=== PATIENT | female | born 1985 | race Caucasian/White ===

== ENCOUNTER → 2019-06-29 15:26 | Outpatient (CLI) | payer BC, SELFPAY ==
[2019-07-02 17:05] LABS: HPV APTIMA, High Risk Negative (Negative)
[2019-07-02 17:06] LABS: HPV Reflexed? YES, CHARGE PATIENT
== END ==
PROVIDERS: Visit Provider Obstetrics & Gynecology
DX: Z12.4 Encounter for screening for malignant neoplasm of cervix (principal)
CPT/HCPCS: 87624; 88175; G0145

== ENCOUNTER 2019-07-01 14:30 | Outpatient (RCR) | payer BC, SELFPAY ==
--- NOTE | 2019-06-15 08:58 | HP.PTEVAL_ITS ---
Patient's Visit Information SHARONA PALMER is a 34 year old F referred to Physical Therapy by Kam Ingram MD with a diagnosis of R ankle strain. Date of Evaluation: 06/15/19 Physical Therapist: Logan Azar, HALLET, OCS, CSCS - Visit Plan Frequency: 1x/Week Duration: 4-6 Weeks Plan: weekly x 2-3(minimizing PT due to copay and patient request.). next visit teach TB strength for HEP and monitor progress with inv/ev ROM and gait/steps. - Subjective Findings: Fell and strained R ankle twisting it sideways on April 25. Was just standing at the time leaning on the fridge. No history of ankle problems. Was not great for over a month...excruciating adn not healing. This last week has been better adn able to walk. Pain over this past weekend was to 3/10 when walking alot. slightly painful walking back to therapy but not bad. Sometimes wakes her up at night. Now in the past week , activities have become mmore normal but cannot run. Able to do basic ADLs over the last week, not sure why that has improved in the last week. No different treatments lately, just ice and ibuprofen originally but not much anymore.. 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 Worked 7 hours yesterday and hurt at 4/10. Pain, when present, is lateral at R ankle and last metatarsal. - Pain R ankle Pain Intensity (Out of 10): 0 Pain Intensity Range: 0, 4 - Objective Walking normal originally then slightly antalgic R after steps. Steps reciprocal without rail but avoids PF in descending. toe and heel walks OK but tender to toe walk. L ankle AROM WFL to 50 inv adn 25 eversion adn 15 DF and 55 PF. R ankle 10 inv uncomfortable, 8 eversion, 8 DF knee straight adn 15 knee bent, and 55 PF slowly with some discomfort. Strength knees adn hips 4+/5 without pain. ankle strength 4- inv adn ev R vs 4+ on L. DF 4+ B. PF 4- R and 5 on Left. Sensation WNL to gross light touch in R LE. Metatarsals moving well. Big toe ROM and strength WNL and without pain. Tender to touch in anterior talo fib ligs and anterior lateral ankle. No bruising or unusual swelling this morning. - Goals Goal 1:: Walk community without antalgia and normal steps without avoidance of PF. Goal Time Frame: 2-4 Weeks Goal 2:: Pt feel 90% back to normal and pain 1/10 at worst and rare. Goal Time Frame: 2-4 Weeks Goal 3:: <10% disability on LEFS Goal Time Frame: 2-4 Weeks Goal 4:: I approp HEP to minimize future problems Goal Time Frame: 4-6 Weeks - Rehabilitation Potential Physical Therapy Diagnosis: R ankle strain Rehabilitation Potential: Good - Anticipated Interventions Patient/Client Instruction: Educate patient on: Condition, Plan of Care For the Purpose of:: To decrease pain, To increase ROM, To improve muscle p erformance and motor function, To increase tolerance to activity/condition/position, To improve ability of physical actions for home/community/work/leisure Therapeutic Exercise to Include: Strength training, Flexibilty training, Gait and locomotor training, Passive ROM, Active ROM For the Purpose of:: To decrease pain, To decrease swelling/inflammation, To improve muscle performance and motor function, To increase tolerance to activity/condition/position, To improve gait and locomotor functions Thank you for the opportunity to evaluate your patient. For Medicare and Medicare HMO plans, please review the plan of care and approve it. It will need to be FAXED BACK to us at [phone] for Medicare purposes. For Medicare only, by signing this I certify the plan of care. Please let me know if there are questions or concerns regarding this plan of care. Physician Signature: Date:
--- NOTE | 2019-07-01 14:55 | HP.PTDCSUM ---
HP - PT D/C Summary It has been my pleasure to treat SHARONA PALMER under orders from Kam Ingram MD, for the diagnosis of R ankle strain for a total of 3 visit(s). Discharge Date: 07/01/19 Please see the following information for a summary of their discharge status. - Subjective Subjective: Feeling about the same over the last week. Not in pain unless stretching. label fuser tender to the touch. Walking feels good. Activities are pretty normal. No f/u with doctor. - Pain R ankle Pain Intensity (Out of 10): 0 - Overall Improvement % Improvement: 50 - Objective Objective/Function: Avoids forefoot WB down steps with R but does it painfree when cued. Walking is normal. AROM WFL and strength R ankle 4+/5 without pain. Overall doing well and subjectively back to normal - Goals Goal 1:: Walk community without antalgia and normal steps without avoidance of PF. Goal Progress: Goal Met Goal 2:: Pt feel 90% back to normal and pain 1/10 at worst and rare. Goal Progress: Progressing Goal 3:: <10% disability on LEFS Goal Progress: Progressing Goal 4:: I approp HEP to minimize future problems Goal Progress: Goal Met - Plan Plan: d/c - D/C Information Discharge Comments: Doing well and ishmael lcotninue via HEP and let doctor know if pain returns. If there are questions or concerns regarding this patient's physical therapy, please feel free to call me at [phone]. Thank you for the referral of this patient. Sincerely, Logan Azar, DPT, OCS, CSCS
== END 2019-07-01 19:00 | disposition home or self-care (01) ==
LOC: PT 14:30
PROVIDERS: Family Provider Family Medicine; PCP Family Medicine; Visit Provider Family Medicine
DX: S96.911D Strain of unspecified muscle and tendon at ankle and foot level, right foot, subsequent encounter (principal)
CPT/HCPCS: 97110; 97161; 97530

== ENCOUNTER 2020-12-26 16:00 | Outpatient (RCR) | payer OTHER, SELFPAY ==
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
--- NOTE | 2020-10-20 10:31 | HP.OTREVAL ---
PATRICIA GARCÍA, It has been my pleasure to treat SHARONA PALMER over the last 13 visits for right TFCC tear. Please see the progress note below for an update on the occupational therapy plan of care! Subjective: sees on November 01 for follow up-. pt demo rolling her wrist increases her pain- and with waving-. feeling of tightness and rolling the wrist causes a pop Objective/Function: wrist 75/55. RD 15 UD 15. pt states with rolling wrist she gets a pop sensation and pain. Therapist advised pt strongly to not roll wist to decrease tightness therapist advised to perform wrist flexion and extension and then UD and RD only (this does not cause pain) pt demo understanding but continued while in clinic- pt said she would work on this-. pt has made good gains with ROM and strength but still feels she is limited with her daily tasks- pt states pain at rest is 2/10 and with use 4/10. therapist advised pt to limit end range of motion stretching that this could compromise the repair and increase pain as she has good ROM with minimal pain. advised pt that is can take up to a year to recover from this sx. more time may decrease her feeling of tightness as scar tissue matures and softens. pt demo understanding. will continue to work with pt next three weeks to increase pts strength without increasing pts pain and return pt to use of right UE with ADLs and IADLs. Therapist advised if she is performing a tasks to make sure pain in no greater than 3/10. Plan Frequency: 2-3x /Week Duration: 6 Weeks Plan: cont POC with PREs without pain. Goals - Goals Patient Goals: Regain Mobility, Regain Strength, Use Hand/Wrist/Arm Normally Again Goal:100% adherence to protocol: Yes Goal:Daily scar massage when approriate: Yes Goal:ROM equal to unaffected hand: Yes Goal:Sanforizing Machine Operator/Pinch strength at least 75% of unaffected hand: Yes Goal:No pain with affected hand use: Yes Goal:Full use of affected hand in daily activities including: Yes Anticipated Interventions Anticipated Interventions: A/AAROM/PROM, Strengthening, Scar Care, Triggerpoint Release, Modalities, Orthoses, Joint Protection/Energy Conservation, Ergonomic Education Please do not hesitate to contact me at [phone] by phone or if you have questions or concerns regarding this new plan of care! Sincerely, Mercedes Walker, OTR/L, CHT
--- NOTE | 2020-10-28 09:10 | HP.OTREVAL ---
PATRICIA GARCÍA, It has been my pleasure to treat SHARONA PALMER over the last 15 visits for right TFCC tear. Please see the progress note below for an update on the occupational therapy plan of care! Subjective: pt arrives states she still notices some popping here an there maybe once or twice every few days- no consistent clicking- pt states she would like to return to yoga without pain, and would like to return to her woodworking tasks she has not been able to do these things since her injury. Objective/Function: pt demo a right reimbursement coordinator strength at 53# without pain this is a increase from 20#. right wrist ROM 70/60. right forearm supination 75. right lateral pinch 14#. right tripod pinch 18#. pt demo a reduction in pain with restrictive reimbursement coordinator strength. Pt reports she has stopped rolling her wrist. Therapist advised to avoid pain with stretching - pt demo understanding-. therapist has ed. pt to avoid supination reimbursement coordinator ie carry shopping bags ect. pt demo understanding- pt making gains just want to return to doing things she did prior to her injury 3 year ago ie yoga and home repairs/ wood working Plan Frequency: 1-2x /Week Duration: 3 Weeks Plan: cont with strengthening Goals - Goals Patient Goals: Regain Mobility, Regain Strength, Use Hand/Wrist/Arm Normally Again Goal:100% adherence to protocol: Yes Goal:Daily scar massage when approriate: Yes Goal:ROM equal to unaffected hand: Yes Goal:Elementary School Librarian/Pinch strength at least 75% of unaffected hand: Yes Goal:No pain with affected hand use: Yes Goal:Full use of affected hand in daily activities including: Yes Anticipated Interventions Anticipated Interventions: A/AAROM/PROM, Strengthening, Scar Care, Triggerpoint Release, Modalities, Orthoses, Joint Protection/Energy Conservation, Ergonomic Education Please do not hesitate to contact me at [phone] by phone or if you have questions or concerns regarding this new plan of care! Sincerely, Mercedes Walker, OTR/L, CHT
== END 2020-12-26 19:00 | disposition home or self-care (01) ==
LOC: OT 16:00
PROVIDERS: PCP Family Medicine
DX: S69.81XD Other specified injuries of right wrist, hand and finger(s), subsequent encounter (principal); Z98.890 Other specified postprocedural states
CPT/HCPCS: 97110; 97140; 97166; 97530

== ENCOUNTER 2021-08-26 09:32 | Outpatient (CLI) | payer OTHER, SELFPAY ==
[2021-08-26 10:44] LABS: ALB/GLOB Ratio 1.3 RATIO (0.9-2.4); AST(SGOT) 14 U/L (15-37); Alanine Aminotransfer ALT/SGPT 18 U/L (13-56); Albumin, Serum 4.4 g/dL (3.2-5.0); Alkaline Phosphatase 74 U/L (45-117); Anion Gap 3 (5-15); BUN 13 mg/dL (7-18); BUN/Creat Ratio 14.9 RATIO (10-20); Calcium,Total 9.4 mg/dL (8.5-10.1); Chloride 108 mmol/L (98-107); Cholesterol 176 mg/dL (200); Creatinine, Serum 0.88 mg/dL (0.55-1.02); EST Glomerular Filtration Rate 78 mL/min (>60); Est Glom Filt Rate - Afr Amer 95 mL/min (>60); Globulin 3.4 g/dL (2.2-4.2); Glucose 92 mg/dL (74-106); High Density Lipoprotein 58 mg/dL; Potassium 4.2 mmol/L (3.5-5.1); Protein, Total 7.8 g/dL (6.4-8.2); Sodium Level 135 mmol/L (136-145); Triglycerides 55 mg/dL; Very Low Density Lipoprotein 11 mg/dL (5-40)
[2021-08-27 10:07] LABS: HEPATITIS B SURFACE AG Negative (Negative); Hepatitis A IgM Antibody Negative (Negative); Hepatitis B Core AB IgM Negative (Negative)
[2021-08-27 16:14] LABS: Hepatitis A AB, Total Negative (Negative)
[2021-08-28 09:25] LABS: Hepatitis B Surface Antibody Non-Reactive; Vitamin D,25 Hydroxy 35.7 ng/mL
[2021-08-28 14:04] LABS: Hep C Antibodies >11.0 s/co ratio (0.0-0.9)
== END 2021-08-26 23:59 | disposition home or self-care (01) ==
PROVIDERS: PCP Family Medicine; Referring Provider Family Medicine; Visit Provider Family Medicine
DX: Z00.00 Encounter for general adult medical examination without abnormal findings (principal); F19.11 Other psychoactive substance abuse, in remission
CPT/HCPCS: 36415; 80053; 80061; 80074; 82306; 86706; 86708

== ENCOUNTER 2021-08-30 15:25 | Outpatient (CLI) | payer OTHER, SELFPAY ==
[2021-09-01 19:07] LABS: HCV Quant. RNA PCR HCV Not Detected IU/mL (.)
== END 2021-08-30 23:59 | disposition home or self-care (01) ==
LOC: MFPLAB 15:28
PROVIDERS: PCP Family Medicine; Referring Provider Family Medicine; Visit Provider Family Medicine
DX: B19.20 Unspecified viral hepatitis C without hepatic coma (principal)
CPT/HCPCS: 36415; 87522

== ENCOUNTER → 2021-11-03 | Outpatient (CLI) | payer OTHER, SELFPAY ==
[2021-11-03 16:21] LABS: Absolute Lymphocyte Count 2.73 X10^3/uL (0.83-4.51); Absolute Neutrophil Count 6.2 X10^3/uL (2.0-7.7); Basophil# 0.05 X10^3/uL; Basophil% 0.5 % (0-1); Eosinophil# 0.16 X10^3/uL; Eosinophils% 1.6 % (0-5); Hematocrit 38.4 % (37-47); Hemoglobin 13.5 g/dL (12.0-15.0); Lymphocyte # 2.73 X10^3/ul (0.83-4.51); Mean Corp Hgb Conc 35.2 g/dL (32-36); Mean Corpuscular Hgb 33.2 pg (27.0-32.0); Mean Corpuscular Volume 94.3 fL (81-99); Mean Platelet Vol. 10.2 fl (6.2-12.0); Monocyte# 0.63 X10^3/uL; Monocyte% 6.5 % (0-10); NRBC Flagged by Analyzer 0 % (0-5); Neutrophil # 6.16 X10^3/uL (2.7-7.7); Neutrophil % 63.2 % (47-70); Platelet Count 184 K/mm3 (150-450); RBC Distribution Width CV 11.7 % (11.6-14.6); RBC Distribution Width SD 40.3 fl (35.1-43.9); Red Blood Count 4.07 M/mm3 (4.2-5.4); White Blood Count 9.8 K/mm3 (4.4-11.0)
[2021-11-03 16:30] LABS: International Normalized Ratio 0.9; Prothrombin Time (Protime)PT. 12.2 SECONDS (11.7-14.9)
[2021-11-03 16:31] LABS: Erythrocyte Sedimentation Rate 6 mm/hr (0-30)
[2021-11-03 17:35] LABS: Hemoglobin A1c 5.2 % (3.8-5.6)
[2021-11-03 17:37] LABS: ALB/GLOB Ratio 1.2 RATIO (0.9-2.4); AST(SGOT) 13 U/L (15-37); Alanine Aminotransfer ALT/SGPT 23 U/L (13-56); Albumin, Serum 3.8 g/dL (3.2-5.0); Alkaline Phosphatase 80 U/L (45-117); Anion Gap 5 (5-15); BUN 13 mg/dL (7-18); CRP < 2.90 mg/L (0.0-3.0); Chloride 107 mmol/L (98-107); Creatinine, Serum 0.87 mg/dL (0.55-1.02); EST Glomerular Filtration Rate 79 mL/min (>60); Est Glom Filt Rate - Afr Amer 96 mL/min (>60); Ferritin 47 ng/mL (8-252); Globulin 3.3 g/dL (2.2-4.2); Glucose 86 mg/dL (74-106); LDH 162 U/L (84-246); Protein, Total 7.1 g/dL (6.4-8.2); Sodium Level 138 mmol/L (136-145)
[2021-11-04 10:10] LABS: HIV - WCH Non-Reactive (Nonreactive)
[2021-11-04 10:19] LABS: Hepatitis C Antibody REACTIVE (Nonreactive)
[2021-11-07 15:08] LABS: Anti-Centromere B Ab <0.2 AI (0.0-0.9); Anti-Chromatin <0.2 AI (0.0-0.9); Anti-Jo <0.2 AI (0.0-0.9); Anti-Scleroderma-70 AB <0.2 AI (0.0-0.9); RNP Ab 0.2 AI (0.0-0.9); SJOGREN'S Anti-SS-A test < 0.2 AI (0.0-0.9); SJOGREN'S Anti-SS-B test < 0.2 AI (0.0-0.9); Smith Ab <0.2 AI (0.0-0.9)
[2021-11-08 11:03] LABS: Anti-Mitochondrial AB <20.0 Units (0.0-20.0); Anti-dsDNA Ab <1 IU/mL (0-9)
== END | disposition home or self-care (01) ==
LOC: LAB 15:50
PROVIDERS: PCP Family Medicine; Referring Provider Nurse Practitioner Adult Health; Visit Provider Nurse Practitioner Adult Health
DX: R76.8 Other specified abnormal immunological findings in serum (principal)
CPT/HCPCS: 36415; 80053; 80074; 82105; 82140; 82164; 82390; 82525; 82728; 83010; 83036; 83516; 83615; 85025; 85610; 85652; 86140; 86225; 86235; 86256; 86703; 86803; 87521; 87522; 87902

== ENCOUNTER → 2021-12-15 | Outpatient (CLI) | payer OTHER, SELFPAY ==
--- NOTE | 2021-12-15 07:31 | US_ITS ---
STUDY: ABDOMINAL ULTRASOUND - RIGHT UPPER QUADRANT REASON FOR VISIT: Female, 36 years old . Hepatitis C. TECHNIQUE: Ultrasound evaluation of the right upper quadrant was performed with real-time and static ghosh-scale imaging. TECHNICAL QUALITY: Adequate. COMPARISON: None. FINDINGS: Liver: The liver measures 15.9 cm. There is normal echogenicity of the liver. The bile ducts are within normal limits. There is hepatic color flow. The direction of portal flow is hepatopetal. There is no demonstrated mass lesion. Gallbladder: Normal distended gallbladder. The gallbladder wall measures 2 mm. There is a negative sonographic Garduno''s sign. There is no pericholecystic fluid. There are no gallstones. Common Bile Duct (C.B.D.): The common bile duct is mildly dilated and measures 10 mm. Pancreas: Normal size of the head, body and tail of the pancreas. There is normal echogenicity of the pancreas. There is no demonstrated pancreatic mass or cyst. Right Kidney: Normal size of the right kidney. The right kidney measures 12.1 cm x 4.8 cm x 3.9 cm. Normal renal cortex. The right cortex measures 1.4 cm. There is no demonstrated renal mass or cyst. There is no right hydronephrosis. US/Abdomen Limited IMPRESSION: Mildly dilated common bile duct. Electronically Signed: Branden Flores MD at 8:42 EDT ,
--- NOTE | 2021-12-15 07:31 | US_ITS ---
STUDY: ABDOMINAL ULTRASOUND - ELASTOGRAPHY REASON FOR VISIT: Female, 36 years old. History of hepatitis C. TECHNIQUE: Liver stiffness measurements were obtained on a [employer] RS 85 ultrasound machine using a CA 1-7 probe following the SRU guidelines. 3 measurements were obtained using a 2-D-SWE method. The IQR/M was 11% suggesting a quality data set. TECHNICAL QUALITY: Adequate. COMPARISON: Comparison is made with prior ultrasound done earlier today. FINDINGS: Liver: There is no demonstrated mass lesion. Median liver stiffness measured 6 kPa. US/Elastography Parenchyma/Organ IMPRESSION: Liver stiffness measures 6 kPa compatible with F2-F3 (Mild to moderate liver fibrosis) Metavir score. Electronically Signed: Branden Flores MD at 8:55 EDT ,
== END | disposition home or self-care (01) ==
LOC: US 07:31
PROVIDERS: PCP Family Medicine; Referring Provider Nurse Practitioner Adult Health; Visit Provider Nurse Practitioner Adult Health
DX: R76.8 Other specified abnormal immunological findings in serum (principal); B19.20 Unspecified viral hepatitis C without hepatic coma
CPT/HCPCS: 76705; 76981

== ENCOUNTER → 2022-02-16 | Outpatient (CLI) | payer OTHER, SELFPAY ==
--- NOTE | 2022-02-16 16:27 | MRI_ITS ---
INDICATION: dilated CBD EXAMINATION: MRI - MR MRCP and Abdomen W/O Contrast TECHNIQUE: Multiplanar and multisequence MR images of the abdomen were obtained with MRCP sequence. Three-dimensional post-processing reconstructions were performed. IV Contrast Dosage and Agent: None. COMPARISON: Ultrasound abdomen 12/15/2021. FINDINGS: Evaluation limited due to motion. LIVER: No mass. Normal morphology. GALLBLADDER AND BILIARY TREE: No gallstones. No gallbladder distension or wall edema. The proximal duodenum is dilated measuring 9 mm without discrete filling defect in the distal CBD. Nvet-bf-vduqjfsa intrahepatic biliary ductal dilatation. PANCREAS: No mass. No pancreatic duct dilation. SPLEEN: Non-enlarged. ADRENAL GLANDS: No nodules. KIDNEYS: Normal renal size and position. No hydronephrosis. No mass. BOWEL: Mild increased stool in the colon. No bowel dilatation. LYMPH NODES: No enlarged periportal or retroperitoneal lymph nodes. PERITONEUM: No ascites or fluid collection. VESSELS: Aorta is non-dilated. LOWER CHEST: No pleural effusion. MRI/MRCP Abdomen without Contrast IMPRESSION: 1. Evaluation limited due to motion. 2. Dilated proximal CBD measuring 9 mm without discrete filling defect to suggest choledocholithiasis. 3. Bzvc-mt-ugyhnuse intrahepatic biliary ductal dilatation. Electronically Signed: Bg Edwards MD at 6:23 EDT ,
== END | disposition home or self-care (01) ==
LOC: MRI 16:17
PROVIDERS: PCP Family Medicine; Visit Provider Nurse Practitioner Adult Health
DX: K83.8 Other specified diseases of biliary tract (principal)
CPT/HCPCS: 74181

== ENCOUNTER → 2022-05-24 | Outpatient (CLI) | payer OTHER, SELFPAY ==
[2022-05-24 17:10] LABS: Absolute Lymphocyte Count 2.88 X10^3/uL (0.83-4.51); Absolute Neutrophil Count 5.6 X10^3/uL (2.0-7.7); Basophil# 0.02 X10^3/uL; Basophil% 0.2 % (0-1); Eosinophil# 0.14 X10^3/uL; Eosinophils% 1.5 % (0-5); Hematocrit 42.1 % (37-47); Hemoglobin 14.9 g/dL (12.0-15.0); Lymphocyte # 2.88 X10^3/ul (0.83-4.51); Lymphocyte % 31.4 % (19-41); Mean Corp Hgb Conc 35.4 g/dL (32-36); Mean Corpuscular Hgb 33.1 pg (27.0-32.0); Mean Corpuscular Volume 93.6 fL (81-99); Mean Platelet Vol. 10.5 fl (6.2-12.0); Monocyte# 0.49 X10^3/uL; Monocyte% 5.3 % (0-10); NRBC Flagged by Analyzer 0 % (0-5); Neutrophil # 5.62 X10^3/uL (2.7-7.7); Neutrophil % 61.5 % (47-70); Platelet Count 187 K/mm3 (150-450); RBC Distribution Width CV 11.9 % (11.6-14.6); RBC Distribution Width SD 40.8 fl (35.1-43.9); White Blood Count 9.2 K/mm3 (4.4-11.0)
[2022-05-24 17:24] LABS: International Normalized Ratio 1.1; Prothrombin Time (Protime)PT. 13.4 SECONDS (11.7-14.9)
[2022-05-24 18:13] LABS: ALB/GLOB Ratio 1.2 RATIO (0.9-2.4); AST(SGOT) 12 U/L (15-37); Alanine Aminotransfer ALT/SGPT 19 U/L (13-56); Albumin, Serum 4.1 g/dL (3.2-5.0); Alkaline Phosphatase 80 U/L (45-117); Anion Gap 4 (5-15); BUN 12 mg/dL (7-18); Calcium,Total 9.1 mg/dL (8.5-10.1); Chloride 106 mmol/L (98-107); Creatinine, Serum 0.75 mg/dL (0.55-1.02); EST Glomerular Filtration Rate 93 mL/min (>60); Est Glom Filt Rate - Afr Amer 113 mL/min (>60); Globulin 3.4 g/dL (2.2-4.2); Glucose 84 mg/dL (74-106); Potassium 3.6 mmol/L (3.5-5.1); Protein, Total 7.5 g/dL (6.4-8.2); Sodium Level 136 mmol/L (136-145)
[2022-05-26 18:07] LABS: HCV Quant. RNA PCR HCV Not Detected IU/mL (.)
[2022-05-26 21:02] LABS: AFP, Tumor Marker < 1.8 ng/mL (0.0-6.4)
== END | disposition home or self-care (01) ==
LOC: LAB 16:05
PROVIDERS: PCP Family Medicine; Visit Provider Nurse Practitioner Adult Health
DX: R76.8 Other specified abnormal immunological findings in serum (principal); K76.0 Fatty (change of) liver, not elsewhere classified; B19.20 Unspecified viral hepatitis C without hepatic coma
CPT/HCPCS: 36415; 80053; 82105; 82140; 85025; 85610; 87522

== ENCOUNTER → 2022-06-20 | Outpatient (CLI) | payer OTHER, SELFPAY ==
[2022-06-20 16:09] LABS: Absolute Lymphocyte Count 2.72 X10^3/uL (0.83-4.51); Absolute Neutrophil Count 5.1 X10^3/uL (2.0-7.7); Basophil# 0.02 X10^3/uL; Basophil% 0.2 % (0-1); Eosinophil# 0.12 X10^3/uL; Eosinophils% 1.4 % (0-5); Hematocrit 40.4 % (37-47); Hemoglobin 13.8 g/dL (12.0-15.0); Lymphocyte # 2.72 X10^3/ul (0.83-4.51); Mean Corp Hgb Conc 34.2 g/dL (32-36); Mean Corpuscular Volume 93.7 fL (81-99); Mean Platelet Vol. 10.4 fl (6.2-12.0); Monocyte% 5.9 % (0-10); NRBC Flagged by Analyzer 0 % (0-5); Neutrophil # 5.13 X10^3/uL (2.7-7.7); Neutrophil % 60.4 % (47-70); Platelet Count 166 K/mm3 (150-450); RBC Distribution Width CV 11.7 % (11.6-14.6); RBC Distribution Width SD 40.7 fl (35.1-43.9); Red Blood Count 4.31 M/mm3 (4.2-5.4); White Blood Count 8.5 K/mm3 (4.4-11.0)
[2022-06-20 20:42] LABS: Estradiol 140.1 pg/mL; Follicle Stimulating Hormone 3.9 mIU/mL; Luteinizing Hormone 5.7 mIU/mL; T4 Free Direct 1.11 ng/dL (0.76-1.46); Thyroid Stim Hormone (TSH) 1.45 uIU/mL (0.358-3.74)
[2022-06-25 22:07] LABS: HPV APTIMA, High Risk Negative (Negative)
[2022-06-28 11:09] LABS: Testosterone, Total 19 ng/dL (8-60)
[2022-06-29 20:32] LABS: Testosterone, % Free 1.05 % (0.50-2.80)
== END | disposition home or self-care (01) ==
LOC: LABSPEC 15:17
PROVIDERS: PCP Family Medicine; Visit Provider Obstetrics & Gynecology
DX: Z12.4 Encounter for screening for malignant neoplasm of cervix (principal); R10.2 Pelvic and perineal pain
CPT/HCPCS: 36415; 82670; 83001; 83002; 84402; 84403; 84439; 84443; 85025; 87624; 88175; G0145

== ENCOUNTER 2022-07-11 15:00 | Outpatient (RCR) | payer OTHER, SELFPAY ==
--- NOTE | 2022-06-21 11:57 | HP.PTEVAL_ITS ---
Patient's Visit Information SHARONA PALMER is a 37 year old F referred to Physical Therapy by Dr. Kam Hunt MD with a diagnosis of L knee pain. Date of Evaluation: 06/19/22 Physical Therapist: David Hurtado, PT, ATC - Visit Plan Frequency: 1x/Week Duration: 1 Week Plan: Issue and instruct pt on HEP consisting of core strengthening and L LE strengthening (VMO and hip abd) - Subjective L knee has been sore for approximately 3 weeks. Pt reports her pain had an insidious onset in nature. Pt reports she does go on walks and perform squats on occasion, but has had no pain with that activity. Pt reports she has been using advil and ice and notes most of her pain is gone now. Pt works remotely from home for [employer]. Pt reports sqatting and going up/down stairs results in increased pain. Pt reports the pain does not effect her sleep at this time, but pt notes when the pain is bad, it does effect her sleep. No tingling or numbness at this time. Pt reports she did have xrays which revealed OA of her L knee. 0/10 pain while sitting here at rest, 7/10 pain at worst. - Pain L knee Pain Intensity (Out of 10): 0 Pain Intensity Range: 7 - Objective Neuro: B LE sensation is WNL to light touch. B patrellar reflex= 2/3. Palpation: Crepitus with AROM of L knee. Tenderness along lateral border of L patella. No obvious deformity. ROM: R knee 0-150, L knee 0-150 degrees. MMT: R knee is 5/5 throughout while L knee flex= 5/5, ext= 4/5 and painful. Special tests: Pos McConnels sign, pos 90/90 - Balance/Special Test Scores Lower Extremity Functional Score: 69 - Goals Goal 1:: Pt will be I with HEP in 1-2 visits Goal Time Frame: 1 Week - Rehabilitation Potential Physical Therapy Diagnosis: Pt has L knee pain and weakness secondary to L knee patellofemoral syndrome Rehabilitation Potential: Good - Anticipated Interventions Patient/Client Instruction: Educate patient on: Condition, Plan of Care For the Purpose of:: To improve self management Therapeutic Exercise to Include: Strength training, Endurance training, Dynamic Lumbar Stabilization For the Purpose of:: To decrease pain, To improve muscle performance and motor function Cryotherapy (ice pack, ice massage): Yes For the Purpose of:: To decrease pain Thank you for the opportunity to evaluate your patient. For Medicare and Medicare HMO plans, please review the plan of care and approve it. It will need to be FAXED BACK to us at [phone] for Medicare purposes. For Medicare only, by signing this I certify the plan of care. Please let me know if there are questions or concerns regarding this plan of care. Physician Signature: Date:
--- NOTE | 2022-11-29 12:45 | HP.PTDCNRP_ITS ---
SHARONA PALMER was seen in my office for initial evaluation on 06/19/22. The following Plan of Care was established for this patient: Initial Frequency: 1x/Week Initial Duration: 1 Week Patient/Client Instruction: Educate patient on: Condition, Plan of Care For the Purpose of:: To improve self management Therapeutic Exercise to Include: Strength training, Endurance training, Dynamic Lumbar Stabilization For the Purpose of:: To decrease pain, To improve muscle performance and motor function Cryotherapy (ice pack, ice massage): Yes For the Purpose of:: To decrease pain This patient was last seen in our office . Pertinent comments regarding their Physical therapy will appear below: Pt was treated for 2 PT visits for L knee pain through the date of 07/11/22. Pt h as not returned through todays date and is discontinued at this time. At this point I will be discontinuing this patient from physical therapy. I would be happy to see this patient again in the future if found appropriate by the physician. Thank you! David Hurtado, PT, ATC Balance/Gait/Functional tests - Balance/Special Test Scores Lower Extremity Functional Score: 69
== END 2022-07-11 19:00 | disposition home or self-care (01) ==
LOC: PT 15:00
PROVIDERS: PCP Family Medicine; Visit Provider Family Medicine
DX: M25.562 Pain in left knee (principal)
CPT/HCPCS: 97110; 97161

== ENCOUNTER → 2022-11-14 | Outpatient (CLI) | payer OTHER, SELFPAY ==
--- NOTE | 2022-11-14 08:52 | BI_ITS ---
MAMMOGRAPHY - BILATERAL DIAGNOSTIC REASON FOR EXAM: Female, 37 years old. Pain at the 12:00 position of the left breast. PERTINENT HISTORY: Aunt with breast cancer. TECHNIQUE: Digital bilateral breast jesse (3D mammographic acquisition) in the CC and MLO projections. 2-D mediolateral oblique (MLO) and craniocaudad (CC) views of both breasts were obtained. CAD: Full Field Digital Mammography with Computer Added Detection was performed. COMPARISON: None. Baseline examination. FINDINGS: Breast Composition: The breasts are extremely dense, which lowers the sensitivity of mammography. There are no dominant masses or suspicious calcifications. No other significant abnormalities are identified. BI/DIAG MAMM W/CAD, BILAT IMPRESSION: Negative diagnostic mammogram. With the patient''s history of pain at the 6:00 position of the left breast, correlation with ultrasound is recommended. ASSESSMENT CATEGORY: BIRADS Category 0: Incomplete. Need additional imaging evaluation. A letter regarding these results will be sent to the patient by the facility within 30 days. Approximately 10% of breast cancers are not detected by mammography. A normal mammogram should not delay biopsy of a clinically suspicious abnormality. Electronically Signed: Branden Flores MD at 9:38 EDT ,
--- NOTE | 2022-11-14 09:34 | US_ITS ---
STUDY: ULTRASOUND BREAST - LEFT REASON FOR EXAM: Female, 37 years old. Pain in the left breast. TECHNIQUE: Axial and longitudinal images of the LEFT breast were performed with a high resolution ultrasound transducer. # OF IMAGES: 19 COMPARISON: Comparison is made with prior mammogram done earlier in the day. FINDINGS: LEFT Breast: Ultrasound of the left breast was obtained. Dense fibroglandular tissue. No sonographic abnormality is seen. US/Breast Limited Unilateral IMPRESSION: Unremarkable targeted ultrasound of the left breast. ASSESSMENT CATEGORY: BIRADS Category 1: Negative. A letter regarding these results will be sent to the patient by the facility within 30 days. Electronically Signed: Branden Flores MD at 10:00 EDT ,
== END | disposition home or self-care (01) ==
PROVIDERS: PCP Family Medicine; Referring Provider Family Medicine; Visit Provider Family Medicine
DX: N64.4 Mastodynia (principal); Z80.3 Family history of malignant neoplasm of breast
CPT/HCPCS: 76642; 77062; 77066; G0279

== ENCOUNTER → 2022-11-22 | Outpatient (CLI) | payer OTHER, SELFPAY ==
[2022-11-22 16:21] LABS: Absolute Lymphocyte Count 2.83 X10^3/uL (0.83-4.51); Absolute Neutrophil Count 2.8 X10^3/uL (2.0-7.7); Basophil# 0.03 X10^3/uL; Basophil% 0.5 % (0-1); Eosinophil# 0.24 X10^3/uL; Eosinophils% 3.7 % (0-5); Hematocrit 38.9 % (37-47); Hemoglobin 12.9 g/dL (12.0-15.0); Lymphocyte # 2.83 X10^3/ul (0.83-4.51); Lymphocyte % 43.8 % (19-41); Mean Corp Hgb Conc 33.2 g/dL (32-36); Mean Corpuscular Hgb 32.2 pg (27.0-32.0); Mean Platelet Vol. 9.9 fl (6.2-12.0); Monocyte# 0.51 X10^3/uL; Monocyte% 7.9 % (0-10); NRBC Flagged by Analyzer 0 % (0-5); Neutrophil # 2.84 X10^3/uL (2.7-7.7); Neutrophil % 43.9 % (47-70); Platelet Count 192 K/mm3 (150-450); RBC Distribution Width CV 11.6 % (11.6-14.6); RBC Distribution Width SD 41.9 fl (35.1-43.9); Red Blood Count 4.01 M/mm3 (4.2-5.4); White Blood Count 6.5 K/mm3 (4.4-11.0)
[2022-11-22 17:24] LABS: ALB/GLOB Ratio 1.2 RATIO (0.9-2.4); AST(SGOT) 25 U/L (15-37); Alanine Aminotransfer ALT/SGPT 62 U/L (13-56); Albumin, Serum 3.8 g/dL (3.2-5.0); Alkaline Phosphatase 80 U/L (45-117); Anion Gap 4 (5-15); BUN 17 mg/dL (7-18); BUN/Creat Ratio 22.5 RATIO (10-20); Calcium,Total 9.4 mg/dL (8.5-10.1); Chloride 106 mmol/L (98-107); Creatinine, Serum 0.76 mg/dL (0.55-1.02); EST Glomerular Filtration Rate 92 mL/min (>60); Est Glom Filt Rate - Afr Amer 111 mL/min (>60); Globulin 3.3 g/dL (2.2-4.2); Glucose 98 mg/dL (74-106); Potassium 3.9 mmol/L (3.5-5.1); Protein, Total 7.1 g/dL (6.4-8.2); Sodium Level 138 mmol/L (136-145)
[2022-11-24 19:07] LABS: HCV Quant. RNA PCR HCV Not Detected IU/mL (.)
== END | disposition home or self-care (01) ==
LOC: LAB 15:52
PROVIDERS: PCP Family Medicine; Referring Provider Nurse Practitioner Adult Health; Visit Provider Nurse Practitioner Adult Health
DX: R76.8 Other specified abnormal immunological findings in serum (principal)
CPT/HCPCS: 36415; 80053; 85025; 87522

== ENCOUNTER 2022-11-27 02:40 | Emergency (ER) | payer OTHER, SELFPAY ==
[2022-11-27 02:41] VITALS: BP 106/57; PULSE 74; RESP 18; TEMP 36.6; O2SAT 96; BMI 25.7
[2022-11-27 02:50] VITALS: O2SAT 100
[2022-11-27 03:00] VITALS: O2SAT 100
--- NOTE | 2022-11-27 03:00 | ED.VIS.DYS ---
HPI History of Present Illness Chief Complaint: Cough Informant: patient and spouse/S.O. Narrative Narrative: Presents the ED by EMS from home increasing dyspnea cough with hemoptysis this evening. Patient has been vaping continuing since June tobacco cigarettes prior to that. Week ago had a coughing episode now she states taken back it was blood then. This evening with coughing she decided to look and noticed bright red blood. Personally mother states it was significant amount. She did not take anticoagulation medicines. Denies asthma or COPD. Denies recent travel or surgeries. No history of PE or DVT. Last menstrual period 2 weeks ago. PE Risk Factors: Negative for Cancer, OCP + Smoking + > 35, Prior DVT or PE, Recent immobilization, Recent surgery or Recent travel Prior similar symptoms: Yes PFSH PFSH Medical History ADHD AV block, 1st degree Depression Hepatitis C Hx of intravenous drug use in remission Migraine Palpitation Panic disorder Restless leg Home Medications diltiazem HCl 240 mg capsule,extended release 24 hr (Cardizem CD) 240 mg PO DAILY 09/22/21 [History Last Taken Unknown] nebivolol 10 mg tablet (Bystolic) 10 mg PO DAILY 09/22/21 [History Last Taken Unknown] nortriptyline 25 mg capsule 25 mg PO BID 09/22/21 [History Last Taken Unknown] methadone 40 mg soluble tablet 40 mg PO DAILY 11/27/22 [History Last Taken Unknown] Allergy/AdvReac Type Severity Reaction Status Date / Time amphetamine [From Adderall] Allergy Intermediate Malaise Verified 11/27/22 02:46 azithromycin [From Zithromax] Allergy Intermediate nausea Verified 11/27/22 02:46 dextroamphetamine Allergy Intermediate Malaise Verified 11/27/22 02:46 [From Adderall] Family History Grandfather Colon cancer Mother Skin cancer Grandmother Breast cancer CVA (cerebral vascular accident) Surgical History H/O wrist surgery Social History Smoking Status: Current every day smoker tobacco type: cigarettes and e-cigarettes alcohol intake: never substance use type: former substance user ROS ROS ED Constitutional Constitutional ED: Denies chills, fever(s) or sweats Eyes Eyes: Denies change in vision ENT ENT ED: Denies dysphagia or sore throat Cardiovascular Cardiovascular: Denies chest pain, leg edema, palpitations or racing heartbeat Respiratory/Chest Respiratory/Chest: Reports cough, dyspnea and other Details: Hemoptysis ; Denies dyspnea on exertion Gastrointestinal Gastrointestinal: Denies abdominal pain, diarrhea, nausea or vomiting Genitourinary Genitourinary ED: Denies dysuria, hematuria or urinary frequency Musculoskeletal Musculoskeletal: Denies back pain, extremity pain or neck pain Integumentary Denies rash or wounds Neurologic Neurologic: Denies headache(s), paresthesias or weakness EXAM Physical Exam Const Vital Signs: 11/27/22 04:43 Pulse Rate 78 Respiratory Rate 17 Blood Pressure 100/75 Blood Pressure Mean 83 Pulse Ox 100 Positive well nourished and well developed Constitutional Narrative: On 2 L nasal cannula for comfort General Appearance ED: well developed and NAD HEENT Reports moist mucous membranes normocephalic and atraumatic Eyes PERRL, EOMs intact bilaterally and conjunctivae normal General Eye ED: Yes normal appearance of both eyes Neck no lymphadenopathy and supple General: Negative for tenderness Chest Wall Chest: Negative for tenderness Resp normal respiratory effort and normal air movement Effort and Inspection: symmetric chest movement; Negative for respiratory distress Cardio regular rate, regular rhythm and no murmurs Peripheral Pulses: pulses 2+ throughout GI normal to inspection, nondistended, normoactive bowel sounds and non-tender Palpation: Negative for guarding or rebound tenderness present Back/Spine no CVA tenderness and no thoracic nor lumbar tenderness Extremity normal to inspection General Extremety ED: Negative for edema or tenderness General Extremity: Negative for edema Neuro oriented x3 and no sensory deficits noted Sensorium / Orientation: awake and alert Skin no rashes or lesions noted and no wounds MDM MDM MDM Narrative Medical decision making narrative: Interventions / MDM: Differential diagnosis:Vape induced hemoptysis, bronchitis, pneumonia Diagnosis considered but do not suspect: Pulmonary embolism, however low risk Wells criteria with a negative D-dimer. My EKG interpretation: N/A Imaging independently reviewed and interpreted by myself:2 view chest x-ray: No acute process no pneumothorax. External documents reviewed: N/A Test considered but not ordered:N/A ED course: Patient's vital stable was placed on oxygen per nursing for comfort. With her history evidence of a being likely irritation causing her hemoptysis. Low risk Wells criteria for PE with hemoptysis, D-dimer obtained negative. Labs are stable chest x-ray reviewed and normal. She was ambulated off oxygen pulse ox normal. Encouraged cessation of vaping monitoring symptoms. Return precautions. All questions were answered. She is given pulmonary follow-up as an outpatient. Re-evaluation: stable Disposition discussed with patient/family/significant other: Patient and significant other Case discussed with consulting clinician: N/A This note was generated with [employer] dictation software. It may contain incorrect words, spelling, and punctuation that were not noted in checking the note before signing. Lab Data Attestation: I reviewed the patient's lab results. Labs: Laboratory Results - last 24 hr 11/27/22 11/27/22 02:20 02:33 Sodium 140 Potassium 2.6 L* Chloride 104 Carbon Dioxide 26.0 Anion Gap 10 BUN 14 Creatinine 0.95 Estim Creat Clear Calc 80.38 Est GFR (MDRD) Af Amer 86 Est GFR (MDRD) Non-Af 71 BUN/Creatinine Ratio 14.7 Glucose 137 H Calcium 9.3 Magnesium 2.4 Radiography Diagnostic Testing: Clinical Impression(s) from Imaging Studies Chest X-Ray 11/27/22 03:37 IMPRESSION: Mild COPD Electronically Signed: Jarad Oquendo MD at 4:39 EDT , Discharge Plan Triage Chief Complaint: Cough ED Provider: Seth oMlina Dx/Rx/DC Orders Clinical Impression: Cough with hemoptysis, Dyspnea, Disorder due to vaping Instructions: ED Dyspnea, ED Hemoptysis Prescriptions: No Action nortriptyline 25 mg capsule 25 mg PO BID nebivolol [Bystolic] 10 mg tablet 10 mg PO DAILY diltiazem HCl [Cardizem CD] 240 mg capsule,extended release 24hr 240 mg PO DAILY methadone 40 mg Tablet,Soluble 40 mg PO DAILY Primary Care Provider: Enedelia Lima Referrals: Bakari Marcos MD [Med Staff - Active Staff] - 3-5 Days if not improving Enedelia Lima DO [Primary Care Provider] - 3-5 Days if not improving Activity Restrictions/Additional Instructions: Stop vaping. Chest x-ray negative. Labs including D-dimer negative. Follow-up as an outpatient. Return if worsening symptoms. Disposition Disposition: Home, Self Care Discharge Date/Time: 11/27/22 05:19
[2022-11-27 03:17] LABS: Absolute Lymphocyte Count 5.84 X10^3/uL (0.83-4.51); Absolute Neutrophil Count 4.2 X10^3/uL (2.0-7.7); Basophil# 0.05 X10^3/uL; Basophil% 0.4 % (0-1); Eosinophils% 3.5 % (0-5); Hematocrit 36.9 % (37-47); Hemoglobin 12.4 g/dL (12.0-15.0); Lymphocyte # 5.84 X10^3/ul (0.83-4.51); Mean Corp Hgb Conc 33.6 g/dL (32-36); Mean Corpuscular Hgb 31.3 pg (27.0-32.0); Mean Corpuscular Volume 93.2 fL (81-99); Mean Platelet Vol. 10.3 fl (6.2-12.0); Monocyte% 7.9 % (0-10); NRBC Flagged by Analyzer 0 % (0-5); Neutrophil # 4.23 X10^3/uL (2.7-7.7); Neutrophil % 36.9 % (47-70); POSITIVE DIFFERENTIAL YES; Platelet Count 228 K/mm3 (150-450); RBC Distribution Width CV 11.6 % (11.6-14.6); RBC Distribution Width SD 39.6 fl (35.1-43.9); Red Blood Count 3.96 M/mm3 (4.2-5.4); White Blood Count 11.5 K/mm3 (4.4-11.0)
[2022-11-27 03:22] LABS: Internal QC Validated? YES +Cl - CLEAR BKGD; Pregnancy, Urine Negative Negative
[2022-11-27 03:24] LABS: Differential Indicated SCAN CRITERIA MET
[2022-11-27 03:35] LABS: D-Dimer Quantitative (DVT/PE) < 0.27 FEU/ug/m (0.27-0.49)
--- NOTE | 2022-11-27 03:37 | RAD_ITS ---
INDICATION: cough EXAMINATION/TECHNIQUE: X-RAY - XR Chest 2 Views COMPARISON: None. FINDINGS: LINES/DEVICES: None. LUNGS: Slightly hyperexpanded lungs. Attenuated lower lung markings on frontal view secondary to overlying breast tissue. Otherwise, no focal airspace consolidation demonstrated. No pulmonary edema. No sizable pleural effusion. No pneumothorax detected. MEDIASTINUM AND CARDIOVASCULAR STRUCTURES: Heart size within normal limits. Mediastinal contours unremarkable. BONES AND SOFT TISSUES: No acute findings. RAD/Chest PA and Lateral IMPRESSION: Mild COPD Electronically Signed: Jarad Oquendo MD at 4:39 EDT ,
[2022-11-27 03:46] LABS: Atypical Lymphocyte RARE %; Differential Comment SCANNED
[2022-11-27 04:04] LABS: Anion Gap 10 (5-15); BUN 14 mg/dL (7-18); BUN/Creat Ratio 14.7 RATIO (10-20); Calcium,Total 9.3 mg/dL (8.5-10.1); Chloride 104 mmol/L (98-107); Creatinine, Serum 0.95 mg/dL (0.55-1.02); EST Glomerular Filtration Rate 71 mL/min (>60); Est Glom Filt Rate - Afr Amer 86 mL/min (>60); Estimated Creatinine Clearance 80.38 ml/min; Glucose 137 mg/dL (74-106); Potassium 2.6 mmol/L (3.5-5.1); Sodium Level 140 mmol/L (136-145)
[2022-11-27 04:25] LABS: Magnesium 2.4 mg/dL (1.6-2.6)
[2022-11-27] MEDS: Potassium Chloride Oral Tablet 20 MEQ 40 MEQ PO (04:39)
[2022-11-27 04:43] VITALS: BP 100/75; PULSE 78; RESP 17; O2SAT 100; O2SAT 97
== END 2022-11-27 05:19 | disposition home or self-care (01) ==
PROVIDERS: Emergency Provider Emergency Medicine; PCP Family Medicine; Visit Provider Emergency Medicine
DX: R04.2 Hemoptysis (principal); U07.0 Vaping-related disorder; R06.00 Dyspnea, unspecified; F32.A Depression, unspecified; Z79.899 Other long term (current) drug therapy; F17.210 Nicotine dependence, cigarettes, uncomplicated
CPT/HCPCS: 71046; 80048; 81025; 83735; 85025; 85379; 99285

== ENCOUNTER → 2022-11-29 | Outpatient (CLI) | payer OTHER, SELFPAY ==
--- NOTE | 2022-11-29 16:23 | MRI_ITS ---
MRCP without contrast 11/29/2022 4:50 PM COMPARISON: 02/16/2022 CLINICAL HISTORY: f/u dilated CBD, intrahepatic biliary ductal dilat TECHNIQUE: Multiplanar and multisequence MR images of the abdomen were obtained with MRCP sequence. Three-dimensional post-processing reconstructions were performed. FINDINGS: Liver: Unremarkable Gallbladder: Unremarkable Bile Ducts: Similar appearance of mild to moderate intrahepatic biliary duct dilatation. Similar appearance of the dilatation of the proximal common bile duct measuring up to 1 cm. No obstructing stone, stricture or mass is seen Pancreas: The main pancreatic duct is at the upper limits of normal measuring 3 mm in diameter. Spleen: Unremarkable Adrenal Glands: Unremarkable Kidneys: Unremarkable GI Tract: Unremarkable Lymphadenopathy: Absent Ascites: Absent Bones: No suspicious lesions MRI/MRCP Abdomen without Contrast IMPRESSION: Unchanged appearance of mild to moderate intrahepatic biliary ductal dilatation with proximal CBD dilatation up to 1 cm. The main pancreatic duct is also at the upper limits of normal measuring 3 mm in diameter. No obstructing stone, mass or stricture is seen. This could be secondary to an occult ampullary stone or mass. Recommend ERCP for further evaluation. Electronically Signed: Tre Rivera MD at 20:07 EDT ,
== END | disposition home or self-care (01) ==
LOC: MRI 16:12
PROVIDERS: PCP Family Medicine; Referring Provider Nurse Practitioner Adult Health; Visit Provider Nurse Practitioner Adult Health
DX: K83.8 Other specified diseases of biliary tract (principal)
CPT/HCPCS: 74181

== ENCOUNTER 2022-11-30 16:56 | Emergency (ER) | payer OTHER, SELFPAY ==
[2022-11-30 16:56] VITALS: O2SAT 100
[2022-11-30 16:57] VITALS: BP 114/72; PULSE 73; RESP 16; TEMP 36.8; O2SAT 100; BMI 25.0
--- NOTE | 2022-11-30 17:14 | CT_ITS ---
INDICATION: hemoptysis EXAMINATION: CT CHEST WITH CONTRAST - CT Chest W/ Contrast Injection TECHNIQUE: Helically acquired images were obtained of the chest following IV contrast. A radiation dose optimization technique was used for this scan. IV Contrast dosage and agent: COMPARISON: None. FINDINGS: LUNGS, PLEURA AND LARGE AIRWAYS: Minimal atelectasis within the dependent portion of the right lower lobe. No focal mass or pulmonary nodule. No pleural effusion or thickening. No pneumothorax. THYROID: No thyroid lesions. HEART AND PERICARDIUM: Heart size is normal. No pericardial effusion. VESSELS: Thoracic aorta is not dilated. No aortic dissection. No obvious central pulmonary embolism although this study was not performed with the pulmonary embolism protocol. MEDIASTINUM AND KRYSTYNA: No mediastinal or hilar adenopathy. Esophagus is unremarkable. No hiatal hernia. UPPER ABDOMEN: No acute pathology. BONES: No suspicious lytic or blastic abnormality. CT/Chest WITH Contrast IMPRESSION: Minimal atelectasis in the dependent portion of the right lower lobe. No acute abnormalities. No evidence for acute infiltration, nodule or pulmonary embolus Electronically Signed: Anthony Mckenzie MD at 17:59 EDT ,
--- NOTE | 2022-11-30 17:16 | EX.ED.DYSGE1 ---
HPI History of Present Illness Chief Complaint: Cough Detail of Chief Complaint: Hemoptysis Informant: patient Onset/Context/Timing Onset: Days (3 days) Narrative Narrative: Patient returns to the ED secondary to continued hemoptysis. She was seen in the ER on the after developing cough with large amount of bloody sputum. Work-up was unremarkable including a negative D-dimer. She states she is scheduled to see ENT for follow-up next week. She returns back stating that she is continuing to cough up blood and has had intermittent dizziness. [facility] Medical History ADHD AV block, 1st degree Depression Hepatitis C Hx of intravenous drug use in remission Migraine Palpitation Panic disorder Restless leg Home Medications diltiazem HCl 240 mg capsule,extended release 24 hr (Cardizem CD) 240 mg PO DAILY 09/22/21 [History Last Taken Unknown] nebivolol 10 mg tablet (Bystolic) 10 mg PO DAILY 09/22/21 [History Last Taken Unknown] nortriptyline 25 mg capsule 25 mg PO BID 09/22/21 [History Last Taken Unknown] methadone 40 mg soluble tablet 40 mg PO DAILY 11/27/22 [History Last Taken Unknown] doxycycline monohydrate 100 mg capsule 100 mg PO BID #20 CAPSULES 11/30/22 [Rx Last Taken Unknown] Allergy/AdvReac Type Severity Reaction Status Date / Time amphetamine [From Adderall] Allergy Intermediate Malaise Verified 11/30/22 16:59 azithromycin [From Zithromax] Allergy Intermediate nausea Verified 11/30/22 16:59 dextroamphetamine Allergy Intermediate Malaise Verified 11/30/22 16:59 [From Adderall] Family History Grandfather Colon cancer Mother Skin cancer Grandmother Breast cancer CVA (cerebral vascular accident) Surgical History H/O wrist surgery Social History Smoking Status: Current every day smoker tobacco type: cigarettes and e-cigarettes alcohol intake: never substance use type: former substance user ROS ROS ED Constitutional Constitutional ED: Denies chills or fever(s) Eyes Eyes: Denies change in vision or discharge from eye(s) ENT ENT ED: Reports sore throat; Denies discharge from eye(s) or rhinorrhea Cardiovascular Cardiovascular: Reports chest pain and other Details: Burning sensation behind sternum. ; Denies palpitations Respiratory/Chest Respiratory/Chest: Reports cough and other Details: Hemoptysis ; Denies dyspnea Gastrointestinal Gastrointestinal: Denies abdominal pain, nausea or vomiting Genitourinary Genitourinary ED: Denies dysuria Musculoskeletal Musculoskeletal: Denies back pain or extremity pain Integumentary Denies Abrasions or rash Neurologic Neurologic: Denies headache(s) or weakness Psychiatric Psychiatric: Denies anxiety or depression Allergic/Immunologic Allergic/Immunologic ED: Denies lip swelling or urticaria EXAM Physical Exam Narrative Exam Narrative: Patient speaks in a whisper. She is in no acute distress and tolerating secretions well. Const Vital Signs: 11/30/22 16:57 11/30/22 16:56 Temperature 98.2 F Temperature Source Temporal Pulse Rate 73 Respiratory Rate 16 Respiratory Effort Normal Non-Labored Respiratory Depth Normal Respiratory Pattern Normal Blood Pressure 114/72 Blood Pressure Mean 86 Pulse Ox 100 Oxygen Delivery Method Room Air Room Air Positive well nourished and well developed General Appearance ED: well developed HEENT Reports normocephalic and head/scalp atraumatic Eyes PERRL and EOMs intact bilaterally Neck supple Chest Wall inspection of chest normal and palpation of chest normal Resp normal respiratory effort and clear to auscultation bilaterally Cardio regular rate and regular rhythm GI normal to inspection, nondistended, normoactive bowel sounds Palpation: soft Extremity normal to inspection Neuro oriented x3 and no sensory deficits noted Sensorium / Orientation: alert Motor Exam: strength 5/5 throughout Psych mental status grossly normal Skin no rashes or lesions noted MDM MDM MDM Narrative Medical decision making narrative: Patient's visit from the other night is reviewed. CBC and chemistry studies are repeated along with coags. CT of the chest with contrast obtained to ensure no obvious mass or tracheal finding. Rapid strep obtained. Lab Data Attestation: I reviewed the patient's lab results. Labs: Laboratory Results - last 24 hr 11/30/22 11/30/22 11/30/22 17:30 17:30 17:30 WBC 7.4 RBC 4.05 L Hgb 13.1 Hct 38.2 MCV 94.3 MCH 32.3 H MCHC 34.3 RDW Std Deviation 39.8 RDW Coeff of Jairo 11.5 L Plt Count 200 MPV 10.1 Immature Gran % (Auto) 0.400 Neut % (Auto) 69.7 Lymph % (Auto) 23.1 [place] % (Auto) 6.1 Eos % (Auto) 0.4 Baso % (Auto) 0.3 Absolute Neuts (auto) 5.2 Absolute Lymphs (auto) 1.72 Nucleated RBC % 0 PT 13.2 INR 1.0 APTT 30.8 Sodium 140 Potassium 4.0 Chloride 107 Carbon Dioxide 26.0 Anion Gap 7 BUN 10 Creatinine 0.82 Estim Creat Clear Calc 93.12 Est GFR (MDRD) Af Amer 101 Est GFR (MDRD) Non-Af 84 BUN/Creatinine Ratio 12.2 Glucose 105 Calcium 9.1 Radiography Diagnostic Testing: Clinical Impression(s) from Imaging Studies Chest CT 11/30/22 17:14 IMPRESSION: Minimal atelectasis in the dependent portion of the right lower lobe. No acute abnormalities. No evidence for acute infiltration, nodule or pulmonary embolus Electronically Signed: Anthony Mckenzie MD at 17:59 EDT , Treatment and Re-Evaluation :: CBC was normal white count. Hemoglobin is 13.1 which is actually higher than she was a couple nights ago. Chemistry studies are unremarkable. She previously had hypokalemia which is now corrected. CT of the chest reveals no acute findings. Rapid strep test is negative. Test results discussed with patient and significant other at bedside. I will treat her with doxycycline for bronchitis. I feel that if we can get the cough controlled this will allow the superficial blood vessels to heal. Patient can take Robitussin or other [id number] cough suppressant as well. Discharge Plan Triage Chief Complaint: Cough ED Provider: Chaparrita Haddad Dx/Rx/DC Orders Clinical Impression: Bronchitis, Hemoptysis Instructions: ED Upper Resp Infec Abx Tx, ED Hemoptysis Prescriptions: New doxycycline monohydrate 100 mg capsule 100 mg PO BID Qty: 20 0RF No Action nortriptyline 25 mg capsule 25 mg PO BID nebivolol [Bystolic] 10 mg tablet 10 mg PO DAILY diltiazem HCl [Cardizem CD] 240 mg capsule,extended release 24hr 240 mg PO DAILY methadone 40 mg Tablet,Soluble 40 mg PO DAILY Primary Care Provider: Enedelia Lima Referrals: Bakari Marcos MD [Med Staff - Active Staff] - 5-7 Days Enedelia Lima DO [Primary Care Provider] - 5-7 Days Disposition Disposition: Home, Self Care
[2022-11-30 17:57] LABS: Absolute Lymphocyte Count 1.72 X10^3/uL (0.83-4.51); Absolute Neutrophil Count 5.2 X10^3/uL (2.0-7.7); Basophil# 0.02 X10^3/uL; Basophil% 0.3 % (0-1); Eosinophil# 0.03 X10^3/uL; Eosinophils% 0.4 % (0-5); Hematocrit 38.2 % (37-47); Hemoglobin 13.1 g/dL (12.0-15.0); Lymphocyte # 1.72 X10^3/ul (0.83-4.51); Lymphocyte % 23.1 % (19-41); Mean Corp Hgb Conc 34.3 g/dL (32-36); Mean Corpuscular Hgb 32.3 pg (27.0-32.0); Mean Corpuscular Volume 94.3 fL (81-99); Mean Platelet Vol. 10.1 fl (6.2-12.0); Monocyte# 0.45 X10^3/uL; Monocyte% 6.1 % (0-10); NRBC Flagged by Analyzer 0 % (0-5); Neutrophil # 5.18 X10^3/uL (2.7-7.7); Neutrophil % 69.7 % (47-70); Platelet Count 200 K/mm3 (150-450); RBC Distribution Width CV 11.5 % (11.6-14.6); RBC Distribution Width SD 39.8 fl (35.1-43.9); Red Blood Count 4.05 M/mm3 (4.2-5.4); White Blood Count 7.4 K/mm3 (4.4-11.0)
[2022-11-30 18:05] LABS: Prothrombin Time (Protime)PT. 13.2 SECONDS (11.7-14.9)
[2022-11-30 18:06] LABS: Partial Thromboplast Time 30.8 Seconds (24.1-36.2)
[2022-11-30 18:10] LABS: Anion Gap 7 (5-15); BUN 10 mg/dL (7-18); BUN/Creat Ratio 12.2 RATIO (10-20); Calcium,Total 9.1 mg/dL (8.5-10.1); Chloride 107 mmol/L (98-107); Creatinine, Serum 0.82 mg/dL (0.55-1.02); EST Glomerular Filtration Rate 84 mL/min (>60); Est Glom Filt Rate - Afr Amer 101 mL/min (>60); Estimated Creatinine Clearance 93.12 ml/min; Glucose 105 mg/dL (74-106); Sodium Level 140 mmol/L (136-145)
== END 2022-11-30 18:53 | disposition home or self-care (01) ==
PROVIDERS: Emergency Provider Emergency Medicine; PCP Family Medicine; Visit Provider Emergency Medicine
DX: J40 Bronchitis, not specified as acute or chronic (principal); R04.2 Hemoptysis; B19.20 Unspecified viral hepatitis C without hepatic coma; F32.A Depression, unspecified; Z79.899 Other long term (current) drug therapy; F17.210 Nicotine dependence, cigarettes, uncomplicated; F17.290 Nicotine dependence, other tobacco product, uncomplicated
CPT/HCPCS: 71260; 80048; 85025; 85610; 85730; 87880; 99282; Q9967; A4216

== ENCOUNTER → 2022-12-06 | Outpatient (CLI) | payer OTHER, SELFPAY ==
[2022-12-07 13:08] LABS: ANTINUCLEAR ANTIBODIES DIRECT Negative (Negative)
[2022-12-07 14:09] LABS: Cytoplasmic Ab (C-ANCA) <1:20 titer (Neg:<1:20); Perinuclear Ab (P-ANCA) <1:20 titer (Neg:<1:20)
== END | disposition home or self-care (01) ==
LOC: PAVLAB 08:53
PROVIDERS: PCP Family Medicine; Referring Provider Internal Medicine Critical Care Medicine; Visit Provider Internal Medicine Critical Care Medicine
DX: R04.2 Hemoptysis (principal)
CPT/HCPCS: 36415; 86038; 86225; 86235; 86256

== ENCOUNTER → 2022-12-12 | Outpatient (CLI) | payer OTHER, SELFPAY ==
--- NOTE | 2022-12-12 07:48 | US_ITS ---
STUDY: ABDOMINAL ULTRASOUND - RIGHT UPPER QUADRANT; ELASTOGRAPHY REASON FOR VISIT: Female, 37 years old. NAFL D TECHNIQUE: Ultrasound evaluation of the right upper quadrant was performed with real-time and static ghosh-scale imaging. Point quantification shear wave elastography was performed ([employer]). TECHNICAL QUALITY: Adequate. COMPARISON: None. FINDINGS: Liver: The liver measures 17.1 cm. There is normal echogenicity of the liver. The bile ducts are within normal limits. There is hepatic color flow. The direction of portal flow is hepatopetal. There is no demonstrated mass lesion. Median liver stiffness measured 7.2 kPa. Gallbladder: Normal distended gallbladder. The gallbladder wall measures 1.2 mm. There is a negative sonographic Garduno''s sign. There is no pericholecystic fluid. There are no gallstones. Common Bile Duct (C.B.D.): The common bile duct measures 8.7 mm. Pancreas: There is normal echogenicity of the visualized pancreas. There is no demonstrated pancreatic mass or cyst. Right Kidney: Normal size of the right kidney. The right kidney measures 11.1 cm x 5.4 cm x 3.9 cm. Normal renal cortex. The right cortex measures 1.1 cm. There is no demonstrated renal mass or cyst. There is no right hydronephrosis. US/ABD Limited w/ Elastography IMPRESSION: 1. Liver stiffness measures 7.2 kPa compatible with F2-F3 (Mild to moderate liver fibrosis) Metavir score. Electronically Signed: Branden Flores MD at 15:06 EDT ,
== END | disposition home or self-care (01) ==
LOC: US 07:47
PROVIDERS: PCP Family Medicine; Referring Provider Nurse Practitioner Adult Health; Visit Provider Nurse Practitioner Adult Health
DX: K76.0 Fatty (change of) liver, not elsewhere classified (principal); R76.8 Other specified abnormal immunological findings in serum
CPT/HCPCS: 76705; 76981

== ENCOUNTER → 2022-12-21 | Outpatient (CLI) | payer OTHER, SELFPAY ==
--- NOTE | 2022-12-22 07:56 | PFT ---
INTRODUCTION: The patient is a 37-year-old female that presents for pulmonary function studies secondary to a diagnosis of hemoptysis. Respiratory therapy reported good patient effort. Bronchodilators were used during testing. INTERPRETATION: Forced expiration spirometry demonstrates no evidence of a large airways obstructive ventilatory defect. There was no significant response to aerosolized bronchodilators. Spirograms are of fair quality and plateau normally. Body plethysmography was performed and revealed lung volumes to be within normal limits. Diffusing capacity by single breath CO was also within normal limits. IMPRESSION: Grossly normal pulmonary function studies.
== END | disposition home or self-care (01) ==
LOC: PSN 09:35
PROVIDERS: PCP Family Medicine; Referring Provider Internal Medicine Critical Care Medicine; Visit Provider Internal Medicine Critical Care Medicine
DX: R04.2 Hemoptysis (principal)
CPT/HCPCS: 94060; 94726; 94729

== ENCOUNTER → 2023-02-06 | Outpatient (CLI) | payer OTHER, SELFPAY | END | disposition home or self-care (01) | LOC: LAB 11:31 | PROVIDERS: PCP Family Medicine; Referring Provider Nurse Practitioner Acute Care; Visit Provider Nurse Practitioner Acute Care | DX: J02.9 Acute pharyngitis, unspecified (principal) | CPT/HCPCS: 87077; 87880 ==

== ENCOUNTER 2023-03-04 13:26 | Day surgery (SDC) | payer OTHER, SELFPAY ==
[2023-03-01 16:11] LABS: Hematocrit 40.8 % (37-47); Hemoglobin 13.6 g/dL (12.0-15.0); Mean Corp Hgb Conc 33.3 g/dL (32-36); Mean Corpuscular Hgb 31.9 pg (27.0-32.0); Mean Corpuscular Volume 95.6 fL (81-99); Mean Platelet Vol. 10.3 fl (6.2-12.0); Platelet Count 197 K/mm3 (150-450); RBC Distribution Width CV 11.5 % (11.6-14.6); RBC Distribution Width SD 40.1 fl (35.1-43.9); Red Blood Count 4.27 M/mm3 (4.2-5.4); White Blood Count 7.7 K/mm3 (4.4-11.0)
[2023-03-01 17:00] LABS: Prothrombin Time (Protime)PT. 12.8 SECONDS (11.7-14.9)
[2023-03-01 17:01] LABS: Partial Thromboplast Time 32.7 Seconds (24.1-36.2)
[2023-03-04] VITALS (7 sets, daily range): BP systolic 85–110; BP diastolic 54–73; PULSE 74–77; RESP 16–17; TEMP 36.4–36.8; O2SAT 96–100; BMI 23.8
--- NOTE | 2023-03-04 | FLU_PTH ---
PATIENT: SHARONA PALMER LOC: EN U#:[id number] AGE/SX: 38/F ROOM: RE03/04/[address]: Dr. Bakari Marcos MD : 1985 BED: DIS: 03/04/2023 SPEC #: [id number] RECD: 03/04/23 14:54 STATUS: NOHELIA CHUA #: [id number] OK: 03/04/23 00:[address]: Bakari Marcos DEPT: CYTOLOGY RECD BY: Tamara Dubon ENTERED: 03/05/23 06:02 SP TYPE: Fluid OTHR DR: Enedelia Lima DO Tissues: Bronchus of right middle lobe Procedures: Special Stain Group II Special Stain Group I Surgery Specimen Level IV AFB Stain (control) GMS Stain (control) Cytospin Fluid HEADER OPERATION: Bronchoscopy with bronchioalveolar lavage PRE-OP DIAGNOSIS: Hemoptysis TISSUE SUBMITTED: Bronchioalveolar lavage, right middle lobe of lung DIAGNOSIS CYTOLOGY Bronchioalveolar lavage, right middle lobe of lung (cytospin and cell block): Negative for malignant cells. Negative for acid-fast bacilli and fungal organisms. See comment. AM:warner 03/06/2023 COMMENT AFB and GMS stains with matched controls were used in the evaluation of this case. CYTOLOGY STUDY Slides are reviewed. CYTOLOGY GROSS Received is 15 ml of sanchez cloudy, mucoidy fluid labeled with the patient's name and and designated per the requisition as BAL RML. Submitted for cytology preparation including cell block. / warner 03/05/2023 TC:5 CPT: 98610, 41628, 27425 x2
--- NOTE | 2023-03-04 13:44 | HP.PCM_ITS ---
History and Physical Date of Admission: 03/04/23
--- NOTE | 2023-03-04 13:44 | PCM.HP.BLA ---
History and Physical Date of Admission: 03/04/23 I have examined the patient the following changes are noted: Patient does report that she has achieved smoking cessation in the interim. Patient is no longer vaping. Patient states she has not had hemoptysis in almost 2 weeks, but continues to have significant pain retrosternally. Patient states this ranges from 3-8. Patient did report some improvement with antibiotics, but not resolution. Patient is not reporting any fevers or chills. Patient's boyfriend has accompanied her. History was verified. He will be taking her home. No other changes below. Patient is comfortable with moving ahead with the procedure. Consent was obtained. Anticipate moving forward with a standard bronchoscopy with BAL of the right middle lobe for infectious etiologies. Assessment and Plan Assessment and Plan (1) Hemoptysis: Status: Chronic Plan: Of unclear etiology. This case was discussed with Dr. Marcos. We will contact the patient to set up a bronchoscopy. I have spent 33 minutes today reviewing labs, records and history. Time includes coordinating care, interpretation of tests, discussion with Dr. Marcos. This also includes time I spent with the patient for exam, treatment plan and education as well as documenting clinical information. (2) Sore throat: Status: Acute Plan: Will test for strep throat. If rapid test is positive we will treat accordingly. If rapid test is negative we will proceed with the bronchoscopy as discussed. The patient was advised that she could utilize vlge-dum-wjvywml nonsteroidal anti-inflammatories for this discomfort. NIOX procedure was performed in the office today and returned within normal limits, this indicates that the patient does not require nor would benefit from the use of systemic corticosteroids. This was explained to her, as she was requesting to be treated with steroids because she felt that treating inflammation might decrease her pain. Plan for her to follow-up with Dr. Marcos after the bronchoscopy is completed. She has been encouraged to contact our office with any new or worsening symptoms in the meantime. Orders: Orders NIOX Today R06.2 - Wheezing Strep A (Throat Rapid GUZMAN) Today J02.9 - Acute pharyngitis, unspecified Bronchoscopy Today R04.2 - Hemoptysis Plan Details Follow Up: 2 Months (BWA) HPI Discuss Bronch Chief Complaint: Hemoptysis HPI Comments Details: This patient presents to the office today for follow-up on her hemoptysis. She is ambulatory and currently on room air. She has not recently been seen in the ED or urgent care for any respiratory illness. She has not required any antibiotics or prednisone for any breathing problems. She does have an albuterol inhaler and is using it daily. She has successfully quit vaping. She is currently smoking 2 to 3 cigarettes/day. She is trying to quit completely. She denies any difficulty with shortness of breath. She continues to experience this raw feeling. It occurs from what she describes as her vocal cords down to the center of my chest. She states that this discomfort has been occurring since approximately January 27. On January 24 or she experienced 1 episode of hemoptysis. She states it was not as severe as they hemoptysis that she had prior to seeing Dr. Marcos. This was only one episode, it was chidi blood but only about a handful. She denies any palpitations. She does have occasional wheezing. She has not had any fever, chills or body aches. She has not tried any ehwz-shj-pekxlmu medications to treat this chest discomfort. She does report that occasionally she would drink hot tea and find some relief. Office visit that occurred with Dr. Gaines on February 04, 2023 notes that she had a laryngoscopy completed. Abnormalities noted is mild edema consistent with chronic laryngitis. Current problems are hoarseness, pain in throat and hemoptysis. Plan is to avoid cigarette smoke, stop smoking. ENT also recommended that she pursue bronchoscopy. Also placed the patient on follow-up as needed. Intake Vital Signs 01/03/2305:56 02/06/2307:29 Height 5 ft 7 in 5 ft 7 in Weight: 152 lb 156 lb BMI 23.8 24.4 BP 106/6 L 114/70 Blood Pressure Location Lt brachial Lt brachial Position Sitting Sitting Respiration 18 18 Pulse 70 79 Pulse Source Monitor Monitor Temp 97.5 F L 97.5 F L Temperature Source Temporal Artery Temporal Artery Pulse Oximetry (%) 97 97 Oxygen Delivery Method room air room air Intake Visit Reasons: Discuss Bronch Chief Complaint: f/u Accompanied by: Self Is patient in pain?: No Allergies amphetamine [From Adderall] Allergy (Intermediate, Verified 02/06/23 10:33) Malaiseazithromycin [From Zithromax] Allergy (Intermediate, Verified 02/06/23 10:33) nauseadextroamphetamine [From Adderall] Allergy (Intermediate, Verified 02/06/23 10:33) Malaise Medications diltiazem HCl 240 mg capsule,extended release 24 hr (Cardizem CD) 240 mg PO DAILY 09/22/21 [History Confirmed 02/06/23] nebivolol 10 mg tablet (Bystolic) 10 mg PO DAILY 09/22/21 [History Confirmed 02/06/23] nortriptyline 25 mg capsule 25 mg PO BID 09/22/21 [History Confirmed 02/06/23] methadone 40 mg soluble tablet 40 mg PO DAILY 11/27/22 [History Confirmed 02/06/23] albuterol sulfate 90 mcg/actuation aerosol inhaler 2 puff inhalation Q6H PRN shortness of breath or wheezing #8.5 grams 12/06/22 [Rx Confirmed 02/06/23] PFSH Medical History ADHD AV block, 1st degree Depression Hepatitis C Hx of intravenous drug use in remission Migraine Palpitation Panic disorder Restless leg Surgical History H/O wrist surgery Family History Grandfather Colon cancerMother Skin cancerGrandmother Breast cancer CVA (cerebral vascular accident) Social History Smoking Status: Current every day smoker alcohol intake: never substance use type: former substance user Review of Systems Resp Respiratory: Yes as per HPI Exam Const Constitutional: Positive conversant, cooperative, in no acute respiratory distress, healthy appearing, well developed, well nourished and good hygiene Head Head: Yes normocephalic, Yes atraumatic and No cyanosis of lips/distal nose Eyes Eye: Positive clear conjunctiva; Negative nystagmus Ears Ear: Positive hearing normal and external ears normal Nose Nose: Yes external nose normal Mouth Mouth: Positive no lesions, good dentition and other (Oral mucosa injected, white patches to tonsils bilaterally); Negative oral thrush present or post nasal drip Mallampati Score: II: Mallampati Score Neck Neck: Positive normal visual inspection, full ROM and trachea midline Chest Wall Chest: Positive normal inspection of the chest and symmetric chest movement Resp lung sounds: Positive clear to auscultation, good air exchange, normal expiratory time and normal respiratory effort; Negative wheezes, rhonchi, rales or use of accessory muscles Cardio Cardiac: Positive regular rate, regular rhythm, S1 normal and S2 normal; Negative murmur, rub or gallop GI GI: Positive normal to inspection Musc Musculoskeletal: Positive steady gait; Negative using an assistive device for ambulation, kyphosis or scoliosis Skin Pulmonary Skin Exam: Positive intact; Negative lesion, rash, ulcers or erythema Pulses Pulse: Yes radial pulses present Extremities Extremities: Yes capillary refill normal, No clubbing, No cyanosis and No edema Neuro Neurologic: Yes no focal neuro deficits, Yes conversant, Yes cooperative, Yes normal cognition, Yes normal coordination, Yes normal concentration and Yes understands questions Psych Appearance: Positive grossly normal Mental Status: Positive mental status grossly normal Mood: Positive congruent mood Affect: Positive normal affect
[2023-03-04 13:56] LABS: Internal QC Validated? YES +Cl - CLEAR BKGD; Pregnancy, Urine Negative Negative
[2023-03-04] MEDS: Lactated Ringers 1,000 ML 15 ML IV (14:00)
[2023-03-04] MEDS: Lidocaine 2% (5ml sdv) 5 ML VIAL.MPF (14:42)
[2023-03-04] MEDS: Lidocaine Jelly 2% 20 ML Syringe (URO-JET) 1 APPLIC (14:45)
--- NOTE | 2023-03-04 15:10 | OP.BRONCH_ITS ---
Patient Name: Treva Pastor Procedure Date: 03/04/2023 2:20 PM Date of : 1985 Age: 38 Procedure: Bronchoscopy Indications: Hemoptysis with normal CXR Providers: Bakari Marcos MD Referring MD: Bakari Marcos MD Medicines: See the Anesthesia note for documentation of the administered medications Complications: No immediate complications Procedure: Pre-Anesthesia Assessment: - A History and Physical has been performed. The patient's medications, allergies and sensitivities have been reviewed. - The risks and benefits of the procedure and the sedation options and risks were discussed with the patient. All questions were answered and informed consent was obtained. - Pre-procedure physical examination revealed no contraindications to sedation. After I obtained informed consent, the scope was passed under direct vision. Throughout the procedure, the patient's blood pressure, pulse, and oxygen saturations were monitored continuously. The bronchoscope was introduced through the mouth and advanced to the tracheobronchial tree of both lungs. The procedure was accomplished without difficulty. Findings: The oropharynx appears normal. There was a significant amount of post nasal secretions that had to be removed to visualize larynx. There was no obvious blood was noted. The larynx appears normal. The vocal cords appear normal. The subglottic space is normal. The trachea is of normal caliber. The j luis is sharp. The tracheobronchial tree was examined to at least the first subsegmental level. Bronchial mucosa and anatomy are normal; there are no endobronchial lesions, and no secretions. The bronchoscope was advanced until wedged at the desired location for bronchoalveolar lavage. BAL was performed in the RML medial segment (B5) of the lung and sent for cell count, bacterial culture, viral smears & culture, and fungal & AFB analysis. 90 mL of fluid were instilled. 38 mL were returned. The return was cloudy. There were no mucoid plugs in the return fluid. Multiple specimens were obtained and pooled into one specimen, which was sent for analysis. Impression: - Hemoptysis with normal CXR - The airway examination was normal. - Bronchoalveolar lavage was performed. - The airway examination was normal. Recommendation: - Await BAL results. - Patient has a contact number available for emergencies. The signs and symptoms of potential delayed complications were discussed with the patient. Return to normal activities tomorrow. Written discharge instructions were provided to the patient. - Medications: nasal steroid. Procedure Code(s): --- Professional --- 42850, Bronchoscopy, rigid or flexible, including fluoroscopic guidance, when performed; with bronchial alveolar lavage Diagnosis Code(s): --- Professional --- R04.2, Hemoptysis CPT copyright 2021 [employer]. All rights reserved. The codes documented in this report are preliminary and upon pharmacy ancillary review may be revised to meet current compliance requirements. MD Bakari Shetty MD 03/04/2023 3:09:42 PM This report has been signed electronically. Number of Addenda: 0 Note Initiated On: 03/04/2023 2:20 PM
[2023-03-04 17:29] LABS: Appearance/Body Fluid CLEAR; Color/Body Fluid YELLOW; Source- Body Fluid BRONCHIAL LAVAGE
[2023-03-04 17:30] LABS: Lymphocytes 7 %; Monocytes 19 %; Neutrophil (Segs) 24 %
[2023-03-04 17:31] LABS: Macrophages 50 %
[2023-03-04 18:12] LABS: Red Cell Count/Body Fluid 73 /mm3
[2023-03-04 18:16] LABS: Body Fluid QC Type(s) BFQ1
[2023-03-05 14:14] LABS: Pathologist Comment/Body Fluid Reviewed
== END 2023-03-04 15:37 | disposition home or self-care (01) ==
LOC: EN 13:27 → AC 13:28
PROVIDERS: Anesthesiology; PCP Family Medicine; Referring Provider Internal Medicine Critical Care Medicine; Visit Provider Internal Medicine Critical Care Medicine
PROC: 0BJ08ZZ Inspection of Tracheobronchial Tree, Via Natural or Artificial Opening Endoscopic (ICD-10-PCS; CPT 31622; principal; 2023-03-04 14:15)
DX: R04.2 Hemoptysis (principal); F17.210 Nicotine dependence, cigarettes, uncomplicated; F90.9 Attention-deficit hyperactivity disorder, unspecified type
CPT/HCPCS: 31624; 36415; 81025; 85027; 85610; 85730; 87015; 87070; 87101; 87116; 87205; 87206; 87252; 88108; 88305; 88312; 88313; 89050; J7120; J2405

== ENCOUNTER → 2024-08-05 | Outpatient (CLI) | payer BC, SELFPAY ==
--- NOTE | 2024-08-05 09:33 | BI_ITS ---
PROCEDURE: DIAG MAMM W/CAD, BILAT REASON FOR EXAM: F, Age 39 y/o, right breast lump. Aunt with breast cancer. TECHNIQUE: Bilateral screening digital breast tomosynthesis with 2D and 3D images. Computer aided detection. COMPARISON: Prior exam(s) dating back to November 14, 2022.. FINDINGS: The breasts are extremely dense which lowers the sensitivity of mammography. Stable examination. No suspicious masses, areas of developing architectural distortion, or suspicious calcifications. BI/DIAG MAMM W/CAD, BILAT IMPRESSION: With the patient's history of a palpable lump in the anterior aspect of the rig ht breast, correlation with ultrasound recommended. BI-RADS 0: INCOMPLETE - NEED ADDITIONAL IMAGING EVALUATION. Follow-up code: Sonographic correlation. The patient will be notified of the results by letter. Reading Location: [id number]
--- NOTE | 2024-08-05 09:33 | US_ITS ---
PROCEDURE: BREAST LIMITED UNILATERAL REASON FOR EXAM: Palpable lump in the upper-outer aspect of the right breast. TECHNIQUE: Targeted right breast ultrasound. COMPARISON: Comparison is made with prior mammogram done earlier in the day. FINDINGS: RIGHT: Right breast ultrasound was targeted to the upper-outer aspect of the right breast.. The palpable lump corresponds to a 3 cm x 2.3 cm x 1.3 cm well-defined hypoechoic density at the 10 o'clock position of the breast at 5 cm from the nipple. Increased vascularity is seen. US/Breast Limited Unilateral IMPRESSION: The palpable lump corresponds to a 3 cm x 2.3 cm x 1.3 cm hypoechoic nodule at the 10 o'clock position of the breast at 5 cm from the nipple. Biopsy recommended. BI-RADS category 4. Follow-up code: Biopsy Recommended Reading Location: [id number]
== END | disposition home or self-care (01) ==
PROVIDERS: PCP Family Medicine
DX: N63.11 Unspecified lump in the right breast, upper outer quadrant (principal)
CPT/HCPCS: 76642; 77062; 77066; G0279

== ENCOUNTER → 2024-08-07 | Outpatient (CLI) | payer BC, SELFPAY ==
--- NOTE | 2024-08-07 13:45 | BRBX_PTH ---
PATIENT: SHARONA PALMER LOC: [facility] U#:[id number] AGE/SX: 39/F ROOM: RE08/07/[address]: Dr. Stu Fontana MD : 1985 BED: DIS: 08/07/2024 SPEC #: [id number] RECD: 08/07/24 14:13 STATUS: NOHELIA CHUA #: [id number] OK: 08/07/24 13:[address]: Stu Fontana DEPT: SURGICAL PATHOLOGY RECD BY: Winnie Turner ENTERED: 08/10/24 08:44 SP TYPE: BREAST BX OTHR DR: Earl Lopez MD Tissues: Right breast, NOS Procedures: Surgery Specimen Level IV HEADER OPERATION: Right breast biopsy PRE-OP DIAGNOSIS: Biopsy of right breast TISSUE SUBMITTED: Right breast biopsy MICROSCOPIC DIAGNOSIS Right breast, core biopsy: * Benign breast tissue with stromal fibrosis, suggestive of fibroadenoma. * Usual ductal hyperplasia. MICROSCOPIC DESCRIPTION Slides are reviewed. GROSS DESCRIPTION Received in fixative is one container labeled with the patient's name and designated Right breast tissue. The specimen consists of four yellow-sanchez lobular cylindrical tissue cores that range from 0.3cm to 2.5cm long and average 0.3cm in diameter. Cores are entirely submitted in one cassette. 08/10/2024 TC: CPT:56537
== END | disposition home or self-care (01) ==
LOC: LABSPEC 14:16
PROVIDERS: PCP Family Medicine; Referring Provider Surgery; Visit Provider Surgery
DX: N60.31 Fibrosclerosis of right breast (principal)
CPT/HCPCS: 88305

== ENCOUNTER → 2025-01-12 | Outpatient (CLI) | payer BC, SELFPAY | END | disposition home or self-care (01) | PROVIDERS: PCP Family Medicine; Visit Provider Family Medicine | DX: L01.00 Impetigo, unspecified (principal) | CPT/HCPCS: 87070; 87077; 87205 ==

== ENCOUNTER → 2025-02-17 | Outpatient (CLI) | payer BC, SELFPAY ==
--- NOTE | 2025-02-17 09:41 | US_ITS ---
PROCEDURE: BREAST LIMITED UNILATERAL 02/17/2025 REASON FOR EXAM: F, Age 40 y/o , RIGHT BREAST Six-month follow-up following biopsy of the dominant nodule in the right breast. COMPARISON: Prior sonogram dated August 05, 2024.. TECHNIQUE: Procedure Code: USBRSTLIMIT Modality: US Procedure: BREAST LIMITED UNILATERAL FINDINGS: Stable 3.3 cm x 2.8 cm x 1.4 cm well-defined hypoechoic solid nodule at the 10 o'clock position of the breast at 5 cm from the nipple. A tissue clip marker is seen within it. US/Breast Limited Unilateral IMPRESSION: Stable 3.3 cm 2.8 cm 1.4 cm well-defined hypoechoic solid nodule at the 10 o'cl ock position of the breast at 5 cm from the nipple. A tissue clip marker is seen within it. BI-RADS 2: BENIGN RECOMMENDATION: Routine annual follow-up in 1 Year Reading Location: [facility]
== END | disposition home or self-care (01) ==
PROVIDERS: PCP Family Medicine; Referring Provider Surgery; Visit Provider Surgery
DX: R92.8 Other abnormal and inconclusive findings on diagnostic imaging of breast (principal); N63.10 Unspecified lump in the right breast, unspecified quadrant
CPT/HCPCS: 76642